=== PATIENT | male | born 1960 | race Caucasian/White ===

== ENCOUNTER 2021-12-11 07:59 | Outpatient (CLI) | payer BC, OTHER, SELFPAY | END 2021-12-11 08:00 | disposition home or self-care (01) | LOC: AMB 12-19 19:36 | PROVIDERS: Visit Provider Family Medicine | DX: I95.9 Hypotension, unspecified (principal); R42 Dizziness and giddiness; R55 Syncope and collapse | CPT/HCPCS: A0425; A0427 ==

== ENCOUNTER 2021-12-11 08:20 | Emergency (ER) | payer BC, OTHER, SELFPAY ==
[2021-12-11] VITALS (17 sets, daily range): BP systolic 76–102; BP diastolic 44–69; PULSE 68–90; RESP 10–24; TEMP 35.6–36.4; O2SAT 97–100; BMI 30.7
--- NOTE | 2021-12-11 08:50 | ED_ITS ---
HPI - Syncope General Chief Complaint: Syncope/Fainted Stated Complaint: Chest Pain, syncope Time Seen by Provider: 12/11/21 08:31 History of Present Illness HPI narrative: 61-year-old man presenting to the emergency department with concern of syncopal event. Was up around 8:00 a.m. this morning about 30 minutes prior to presenting to the emergency department to urinate. Became increasingly lightheaded and returning to the bed missed the corner of the bed to sit on ending up on the floor waking up to his over him. She helped him up to the bed and is subsequently passed out again. Did not have headache. Did not reportedly hit his head. Is not complaining of any neck or back pain. Was notably exertionally fatigued or winded. With all of this also then had the need to have a bowel movement which patient's spouse reported smelled as if it had blood in it and was unusually dark. EMS was called and from EKG strips the looks to have been some ST depression about 1 mm in V2 V3 with elevation similar in lead 3 a little less in lead to maybe a little in AVF as well. This looks to be improved in the EKG about 7 minutes later though still mildly present. He was not having any chest pain at this time. He was quite diaphoretic around these times. Took 324 mg of aspirin. EKG presented to me upon patient's arrival looks like this has really normalized now. Recent history for Mr. Mckeon includes on the 19 of November having a Whipple procedure. It sounds as though this has gone well. He subsequently I believe on the 29 of November had cardiac stent placement. Had been experiencing chest and left shoulder pain prompting an angiogram. Over the last nearly 2 weeks things have been going reasonably well; has been feeling fairly good. Related Data Home Medications Medication Instructions Recorded Confirmed atorvastatin 80 mg tablet 80 mg PO QHS 12/11/21 12/11/21 clopidogrel 75 mg tablet (Plavix) 75 mg PO DAILY 12/11/21 12/11/21 fluconazole 200 mg tablet 200 mg PO Q12H 12/11/21 12/11/21 (Diflucan) lisinopril 2.5 mg tablet 2.5 mg PO DAILY 12/11/21 12/11/21 metoprolol tartrate 25 mg tablet 12.5 mg PO BID 12/11/21 12/11/21 pantoprazole 40 mg granules 40 mg PO DAILY 12/11/21 12/11/21 delayed-release for susp in packet (Protonix) Allergies Allergy/AdvReac Type Severity Reaction Status Date / Time No Known Drug Allergies Allergy Verified 12/11/21 11:52 Review of Systems Status of ROS: Reports: 10 or more systems reviewed and unremarkable except as noted in History and below PFSH PFSH Social History Smoking Status: Never smoker Do you use any of these nicotine containing products: None Second hand tobacco smoke exposure: No How often do you have a drink containing alcohol: never AUDIT-C Alcohol total score: 0 Non-prescribed substance use: denies use Exam Narrative: Exam Narrative: Pleasant. Calm. NAD. Breathing easily. Cranial nerves 2-12 intact. Cognating normally. Skin is warm and dry not diaphoretic. There is no JVD, no HJR Head looks to be atraumatic. Neck is supple nontender. Back nontender. Lungs are clear equal expansion excursion. Extremities are without edema. Moving all extremities without difficulty. Abdomen is soft protuberant. Nontender. Well-healing scars of recent surgery. No excessive erythema present. Cardiovascular with regular rate and rhythm. Little distant but no murmur rub or gallop appreciated. Const: Vital Signs, click to edit/add: Vital Signs - 24 hr 12/11/21 08:35 12/11/21 08:26 12/11/21 08:30 Temperature 96.1 F L 96.1 F L Pulse Rate [Right Pulse Oximeter] 75 78 75 Respiratory Rate 16 16 20 Blood Pressure [Ri ght Upper Arm] 83/55 L 83/55 L 84/44 L Pulse Oximetry 98 99 99 Oxygen Delivery Me thod Room Air Room Air Room Air 12/11/21 08:45 12/11/21 09:15 12/11/21 09:20 Temperature Pulse Rate [Right Pulse Oximeter] 77 72 71 Respiratory Rate 24 18 10 L Blood Pressure [Ri ght Upper Arm] 93/60 87/57 L 83/49 L Pulse Oximetry 100 98 100 Oxygen Delivery Me thod Room Air Room Air Room Air 12/11/21 09:25 12/11/21 09:25 12/11/21 09:30 Temperature Pulse Rate [Right Pulse Oximeter] 84 90 69 Respiratory Rate 15 15 23 Blood Pressure [Ri ght Upper Arm] 76/50 L 93/58 L 93/56 L Pulse Oximetry 100 100 100 Oxygen Delivery Me thod Room Air Room Air Room Air 12/11/21 09:45 12/11/21 10:00 12/11/21 10:15 Temperature Pulse Rate [Right Pulse Oximeter] 73 68 79 Respiratory Rate 16 21 12 Blood Pressure [Ri ght Upper Arm] 93/63 102/63 99/69 Pulse Oximetry 100 100 97 Oxygen Delivery Me thod Room Air Room Air Room Air 12/11/21 10:30 12/11/21 10:45 12/11/21 11:00 Temperature Pulse Rate [Right Pulse Oximeter] 72 70 70 Respiratory Rate 17 21 18 Blood Pressure [Ri ght Upper Arm] 97/66 97/63 95/63 Pulse Oximetry 100 100 98 Oxygen Delivery Me thod Room Air Room Air Room Air 12/11/21 12:00 12/11/21 13:31 12/11/21 14:30 Temperature 97.6 F Pulse Rate [Right Pulse Oximeter] 72 68 76 Respiratory Rate 13 20 19 Blood Pressure [Ri ght Upper Arm] 94/55 L 94/60 96/60 Pulse Oximetry 100 100 99 Oxygen Delivery Me thod Room Air Room Air Documenting provider has reviewed patient's vital signs: yes Course Course Hospital Course: Is being initiated on fluid resuscitation given low blood pressures on arrival. Labs are pending. Stool guaiac as well. Stool guaiac positive. Hemoglobin is 8.3 it is about 1 gm lower than last checked. Have repeated EKGs which look to have normalized. Troponins while elevated are flat. Spouse provides documentation showing a troponin of 1500 approximately 6 days ago. Surgeon care team has been in the loop as well as Cardiology at [facility]. In spite of abdominal pain are concerned about evolving process intra-abdominally. CT scan of abdomen pelvis was done. I did review these images. Good amount of inflammation/edema present in the area of surgery as expected. Over-read by radiology as below --did discuss personally with them. 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 There are scattered foci of questionable enhancement versus hyperdense suture material just at the pancreatico duodenostomy with additional somewhat layering radiopaque material within the bypassed duodenum and jejunum which could represent a minimal amount of organizing clot. Recommend additional follow-up with repeat CT with arterial and delayed timing such is a pancreatic protocol CT for assessment of active bleeding at the level of the anastomosis. Findings are best seen on series 2 image 40 through 49. Additional note is made of somewhat prominent biliary system with questionable mild thickening and enhancement of the common bile duct wall which could represent a minimal amount of cholangitis change. Pending now is repeat abdominal imaging arterial phase. Also given elevated D- dimer which most likely is secondary to inflammation present, will be attempting to image chest as well for pulmonary embolus. No evidence of large intra- abdominal bleeding to explain persistent relative hypotension. Perhaps this is related to recent syncope, and as clarified with me actually an MD 2 weeks ago, with single-vessel stenting in the left obtuse marginal(?) and/or symptomatic pulmonary embolus as well. I received a call back from [facility]. Edema is concerned and would like to evaluate further at [facility]. Will be sent directly to the emergency department upon completion of imaging. Also communicated with Cardiology Dr. Shaffer directly. Final imaging reads as below-- Due to timing of contrast, CT imaging was not ultimately useful to exclude pulmonary embolus. IMPRESSION: 1. Changes of Whipple procedure, with active bleeding into the pancreaticojejunostomy. 2. Mild periportal edema could be reactive. 3. No other important changes from prior. I discussed these images with Radiology Troponins over time were flat. Likely still coming down from MD and recent procedure. Consultations Consultation #1: Have attempted given elevated troponins exploring placement in various locations including [facility]. No beds available. Did however receive a call back from [facility] after consulting Cardiology with EKGs. They feel that the EKGs are unchanged from prior recommending repeat EKG and labs. This is already pending. Vital Signs Vital signs: Initial Vital Signs Temperature 96.1 F L 12/11/21 08:26 Temperature Source Temporal Artery Scan 12/11/21 08:26 Pulse Rate 78 12/11/21 08:26 Pulse Rhythm 12/11/21 08:26 Pulse Strength 0+ Absent 12/11/21 08:26 Respiratory Rate 16 12/11/21 08:26 Respiratory Effort 12/11/21 08:26 Respiratory Depth Normal 12/11/21 08:26 Blood Pressure 83/55 L 12/11/21 08:26 Blood Pressure Mean 64 12/11/21 08:26 Blood Pressure Position Supine 10/28/22 08:26 Pulse Oximetry 99 12/11/21 08:26 Oxygen Delivery Method 12/11/21 08:26 Vital Signs Temperature 96.1 F L 12/11/21 08:26 Pulse Rate 78 12/11/21 08:26 Respiratory Rate 16 12/11/21 08:26 Blood Pressure 83/55 L 12/11/21 08:26 Pulse Oximetry 99 12/11/21 08:26 Oxygen Delivery Method 12/11/21 08:26 Temperature 97.6 F 12/11/21 14:30 Pulse Rate 76 12/11/21 14:30 Respiratory Rate 19 12/11/21 14:30 Blood Pressure 96/60 12/11/21 14:30 Pulse Oximetry 99 12/11/21 14:30 Oxygen Delivery Method 12/11/21 13:31 MDM - Syncope Medical Records Attestation: I reviewed the patient's medical records. Lab Data Attestation: I reviewed the patient's lab results. Labs: Lab Results 12/11/21 12/11/21 12/11/21 Range/Units 08:53 08:58 08:58 WBC 10.27 (4.50-11.00) K/uL RBC 2.86 L (4.30-5.90) m/uL Hgb 8.3 L (13.5-17.5) gm/dL Hct 25.8 L (37.0-53.0) % MCV 90 (80-100) fL MCH 29 (26-34) pg MCHC 32 (32-36) gm/dL RDW Coeff of Shon 14.0 (11.5-15.5) % Plt Count 478 H (140-440) K/uL Neut % (Auto) 77.0 H (42.0-72.0) % Lymph % (Auto) 14.4 L (20-44) % Cook % (Auto) 5.6 (0.0-11.0) % Eos % (Auto) 1.8 (0.0-7.0) % Baso % (Auto) 0.5 (0.0-3.0) % Neut # (Auto) 7.90 H (1.7-7.0) K/uL Lymph # (Auto) 1.50 (0.90-2.90) K/uL Cook # (Auto) 0.60 (0.00-0.90) K/UL Eos # (Auto) 0.18 (0.00-0.50) K/uL Baso # (Auto) 0.05 (0.00-0.30) K/uL Abs Immat Gran (auto) 0.07 (0.00-0.30) K/uL D-Dimer Quant (PE/DVT) 3.51 H (0.00-0.50) ug/ml Sodium (135-149) mmol/L Potassium (3.6-5.1) mmol/L Chloride (96-114) mmol/L Carbon Dioxide (20-32) mmol/L BUN (7-30) mg/dL Creatinine (0.5-1.5) mg/dL Estimated Creat Clear Estimated GFR ml/min Glucose (60-115) mg/dL Calcium (8.4-10.6) mg/dL Magnesium (1.5-2.6) mg/dL Total Bilirubin (0.1-1.5) mg/dL Direct Bilirubin (0.0-0.5) mg/dL AST (12-35) U/L ALT (4-50) U/L Alkaline Phosphatase (40-150) U/L Troponin I (0.01-0.04) ng/mL C-Reactive Protein (0.5-1.0) mg/dL NT-Pro-B Natriuret Pep (0-125) PG/mL Total Protein (6.0-8.3) g/dL Albumin (3.3-5.0) g/dL SARS-CoV-2 (PCR) Negative SARS-CoV-2 (Negative) POC Troponin I (0.01-0.04) ng/ml 12/11/21 12/11/21 12/11/21 Range/Units 08:58 08:58 08:58 WBC (4.50-11.00) K/uL RBC (4.30-5.90) m/uL Hgb (13.5-17.5) gm/dL Hct (37.0-53.0) % MCV (80-100) fL MCH (26-34) pg MCHC (32-36) gm/dL RDW Coeff of Shon (11.5-15.5) % Plt Count (140-440) K/uL Neut % (Auto) (42.0-72.0) % Lymph % (Auto) (20-44) % Cook % (Auto) (0.0-11.0) % Eos % (Auto) (0.0-7.0) % Baso % (Auto) (0.0-3.0) % Neut # (Auto) (1.7-7.0) K/uL Lymph # (Auto) (0.90-2.90) K/uL Cook # (Auto) (0.00-0.90) K/UL Eos # (Auto) (0.00-0.50) K/uL Baso # (Auto) (0.00-0.30) K/uL Abs Immat Gran (auto) (0.00-0.30) K/uL D-Dimer Quant (PE/DVT) (0.00-0.50) ug/ml Sodium 138 (135-149) mmol/L Potassium 4.8 (3.6-5.1) mmol/L Chloride 106 (96-114) mmol/L Carbon Dioxide 24 (20-32) mmol/L BUN 16 (7-30) mg/dL Creatinine 1.0 (0.5-1.5) mg/dL Estimated Creat Clear 82.62 Estimated GFR 86 ml/min Glucose 209 H (60-115) mg/dL Calcium 8.5 (8.4-10.6) mg/dL Magnesium 1.9 (1.5-2.6) mg/dL Total Bilirubin 0.2 (0.1-1.5) mg/dL Direct Bilirubin 0.1 (0.0-0.5) mg/dL AST 26 (12-35) U/L ALT 25 (4-50) U/L Alkaline Phosphatase 90 (40-150) U/L Troponin I 1.46 H* (0.01-0.04) ng/mL C-Reactive Protein 2.5 H (0.5-1.0) mg/dL NT-Pro-B Natriuret Pep 815 H (0-125) PG/mL Total Protein 5.9 L (6.0-8.3) g/dL Albumin 3.3 (3.3-5.0) g/dL SARS-CoV-2 (PCR) (Negative) POC Troponin I 0.90 H (0.01-0.04) ng/ml 12/11/21 12/11/21 Range/Units 10:43 14:08 WBC (4.50-11.00) K/uL RBC (4.30-5.90) m/uL Hgb (13.5-17.5) gm/dL Hct (37.0-53.0) % MCV (80-100) fL MCH (26-34) pg MCHC (32-36) gm/dL RDW Coeff of Shon (11.5-15.5) % Plt Count (140-440) K/uL Neut % (Auto) (42.0-72.0) % Lymph % (Auto) (20-44) % Cook % (Auto) (0.0-11.0) % Eos % (Auto) (0.0-7.0) % Baso % (Auto) (0.0-3.0) % Neut # (Auto) (1.7-7.0) K/uL Lymph # (Auto) (0.90-2.90) K/uL Cook # (Auto) (0.00-0.90) K/UL Eos # (Auto) (0.00-0.50) K/uL Baso # (Auto) (0.00-0.30) K/uL Abs Immat Gran (auto) (0.00-0.30) K/uL D-Dimer Quant (PE/DVT) (0.00-0.50) ug/ml Sodium (135-149) mmol/L Potassium (3.6-5.1) mmol/L Chloride (96-114) mmol/L Carbon Dioxide (20-32) mmol/L BUN (7-30) mg/dL Creatinine (0.5-1.5) mg/dL Estimated Creat Clear Estimated GFR ml/min Glucose (60-115) mg/dL Calcium (8.4-10.6) mg/dL Magnesium (1.5-2.6) mg/dL Total Bilirubin (0.1-1.5) mg/dL Direct Bilirubin (0.0-0.5) mg/dL AST (12-35) U/L ALT (4-50) U/L Alkaline Phosphatase (40-150) U/L Troponin I 1.50 H* 1.39 H* (0.01-0.04) ng/mL C-Reactive Protein (0.5-1.0) mg/dL NT-Pro-B Natriuret Pep (0-125) PG/mL Total Protein (6.0-8.3) g/dL Albumin (3.3-5.0) g/dL SARS-CoV-2 (PCR) (Negative) POC Troponin I (0.01-0.04) ng/ml ECG Data Attestation: I personally reviewed and interpreted this ECG as follows: (Looks to be in normal sinus at a rate of 71. QT of 492 milliseconds subtle elevation of the ST segment in lead 3 and very subtle depression in V4. ) Discharge Plan Discharge Clinical Impression: Syncope, Hypotension, GI bleed Patient Disposition: Xfer [facility] Discharge Location: [facility] Condition: Stable Prescriptions: No Action atorvastatin 80 mg tablet 80 mg PO QHS clopidogrel [Plavix] 75 mg tablet 75 mg PO DAILY fluconazole [Diflucan] 200 mg tablet 200 mg PO Q12H lisinopril 2.5 mg tablet 2.5 mg PO DAILY metoprolol tartrate 25 mg tablet 12.5 mg PO BID pantoprazole [Protonix] [address] for susp in packet 40 mg PO DAILY Stand Alone Forms: MyHealth Info Instructions
[2021-12-11] MEDS: 0.9 % SODIUM CHLORIDE 1000 ml 1,000 ML IV (08:58)
[2021-12-11 09:07] LABS: Basophils Absolute Auto 0.05 K/uL (0.00-0.30); Basophils Percent Auto 0.5 % (0.0-3.0); Eosinophils Absolute Auto 0.18 K/uL (0.00-0.50); Eosinophils Percent Auto 1.8 % (0.0-7.0); Hematocrit 25.8 % (37.0-53.0); Hemoglobin* 8.3 gm/dL (13.5-17.5); Immature Granulocytes Abs Auto 0.07 K/uL (0.00-0.30); Lymphocytes Percent Auto 14.4 % (20-44); Mean Corpuscular HGB Conc 32 gm/dL (32-36); Mean Corpuscular Hemoglobin 29 pg (26-34); Mean Corpuscular Volume 90 fL (80-100); Monocytes Percent Auto 5.6 % (0.0-11.0); Platelet Count* 478 K/uL (140-440); Red Blood Count 2.86 m/uL (4.30-5.90); White Blood Count* 10.27 K/uL (4.50-11.00)
[2021-12-11 09:27] LABS: Albumin* 3.3 g/dL (3.3-5.0); Chloride* 106 mmol/L (96-114)
[2021-12-11 09:28] LABS: Potassium* 4.8 mmol/L (3.6-5.1); Slide Review Reflex No; Sodium* 138 mmol/L (135-149)
--- NOTE | 2021-12-11 09:29 | ED.NURSE ---
Attempted to do orthostatic BP lying 87/57-73 sitting 83/49-76 standing 76/50-96--needed to sit on the edge of the bed due to sx of dizzy, sob stated on 12/06/21 Hbg was 9.3. patient is taking plavix and Asa baby 324mg today for sx adiviced.
[2021-12-11 09:30] LABS: Est. Creatinine Clearance* 82.62; Estimated Glomerular Filt Rate 86 ml/min
[2021-12-11 09:31] LABS: Alanine Aminotransferase* 25 U/L (4-50); Alkaline Phosphatase* 90 U/L (40-150); Aspartate Amino Transferase* 26 U/L (12-35); Bilirubin Direct* 0.1 mg/dL (0.0-0.5); Bilirubin Total* 0.2 mg/dL (0.1-1.5); Blood Urea Nitrogen* 16 mg/dL (7-30); Calcium* 8.5 mg/dL (8.4-10.6); Carbon Dioxide* 24 mmol/L (20-32); Glucose* 209 mg/dL (60-115); Total Protein* 5.9 g/dL (6.0-8.3)
[2021-12-11 09:32] LABS: Magnesium* 1.9 mg/dL (1.5-2.6)
[2021-12-11 09:34] LABS: C Reactive Protein* 2.5 mg/dL (0.5-1.0)
[2021-12-11 09:39] LABS: NT Pro B Type NatriureticPept* 815 PG/mL (0-125)
[2021-12-11 09:41] LABS: D Dimer Quantitative* 3.51 ug/ml (0.00-0.50)
[2021-12-11 09:43] LABS: Troponin I* 1.46 ng/mL (0.01-0.04)
--- NOTE | 2021-12-11 09:44 | ED.NURSE ---
lab called with a critical lab 1.[address] Carcamo
--- NOTE | 2021-12-11 09:45 | ED.NURSE ---
stool is positive for blood per MD
[2021-12-11] MEDS: 0.9 % SODIUM CHLORIDE 250 ml 250 ML IV (10:05)
[2021-12-11 10:06] LABS: SARS PCR* Negative SARS-CoV-2 (Negative)
--- NOTE | 2021-12-11 13:30 | ED.NURSE ---
abdominal drain emptied by spouse.
--- NOTE | 2021-12-11 13:51 | CRLHL7_ITS ---
For Patients: As a result of the 21st Century Cures Act, medical imaging exams and procedure reports are released immediately into your electronic medical record. You may view this report before your referring provider. If you have questions, please contact your health care provider. INDICATION: Follow-up possible bleed seen on previous CT done today by Whipple surgery. TECHNIQUE: CT abdomen without and with 60 mL Isovue 370 IV contrast. Post-contrast phases were performed during arterial, portal venous, and 90 second delay. Coronal and sagittal reformats were generated. COMPARISON: CT of the abdomen pelvis from 12/11/2021 and 11/25/2021. FINDINGS: Lower chest: Unremarkable. Liver: Mild periportal edema. Gallbladder and bile ducts: Surgically absent. Spleen: Unremarkable. Pancreas: Resection of the pancreatic head as part of a Whipple procedure. High-density structures in the region of the pancreaticojejunostomy are compatible with clips. An area of linear high attenuation on the arterial phase tracks into the jejunum (12/42). This increases in amount and tracks dependently within the bowel lumen on the delayed phase (7/42). The jejunum beyond the pancreaticojejunostomy is dilated and contains high-density material, compatible with active bleeding. The source is not apparent, but appears to come from a branch of the superior pancreaticoduodenal artery. The remaining pancreatic body and tail are normal in caliber. No ductal dilation. Adrenal glands: Unremarkable. No nodules. Kidneys and Ureters: Unremarkable. No suspicious masses, stones, or hydronephrosis. Lymph Nodes and Retroperitoneum: Unremarkable. Vasculature: Conventional hepatic arterial anatomy. GI tract: Changes antrectomy and gastrojejunostomy is part of a Whipple procedure. Bowel loops are normal in caliber. Peritoneum/Abdominal Wall: Percutaneous drain has its tip in the upper right abdomen. Bones: Unremarkable for age. IMPRESSION: 1. Changes of Whipple procedure, with active bleeding into the pancreaticojejunostomy. 2. Mild periportal edema could be reactive. 3. No other important changes from prior. Findings were discussed with Dr. Carcamo on 12/11/2021 at 3:51 p.m. Please note that all CT scans at this facility use dose modulation, iterative reconstruction, and/or weight-based dosing when appropriate to reduce radiation dose to as low as reasonably achievable. Dictated by Luan Mcmahon MD @ 12/11/2021 4:34:29 PM (Electronically Signed)
--- NOTE | 2021-12-11 13:52 | CRLHL7_ITS ---
For Patients: As a result of the 21st Century Cures Act, medical imaging exams and procedure reports are released immediately into your electronic medical record. You may view this report before your referring provider. If you have questions, please contact your health care provider. INDICATION: Elevated D-dimer. Low hemoglobin. Surgery 11/19 Whipple. TECHNIQUE: CT chest was acquired with 60 mL Isovue 370 IV contrast. Coronal and sagittal reformats were generated. COMPARISON: None. FINDINGS: Thyroid: Unremarkable. Thoracic lymph nodes: No enlarged supraclavicular, mediastinal, hilar, or axillary lymph nodes. Mediastinum and esophagus: Unremarkable. Heart and vasculature: The heart size is normal. Poor opacification of the vascular structures. Lungs: Bibasilar atelectasis. Pleura: Unremarkable. Chest wall: Unremarkable. Upper abdomen: Surgical changes in the abdomen. Bones: Mild degenerative changes. No aggressive appearing lytic or blastic lesions. IMPRESSION: 1. No CT abnormality in the chest within limitations of poor opacification of the vasculature, due to scanning after the CT of the abdomen and pelvis. If there is clinical concern for a pulmonary embolus, recommend CT PE protocol. 2. Please see the same day CT of the abdomen and pelvis for further details about abdominal findings. Please note that all CT scans at this facility use dose modulation, iterative reconstruction, and/or weight-based dosing when appropriate to reduce radiation dose to as low as reasonably achievable. Dictated by Luan Mcmahon MD @ 12/11/2021 3:36:24 PM (Electronically Signed)
[2021-12-11] MEDS: PANTOPRAZOLE SODIUM 40 MG INJ 80 MG IVP (14:37)
[2021-12-11 15:00] LABS: Troponin I* 1.39 ng/mL (0.01-0.04)
--- NOTE | 2021-12-11 15:25 | ED.NURSE ---
Patient transfered to [facility] Emergency department.
== END 2021-12-11 15:27 | disposition home or self-care (01) ==
PROVIDERS: Emergency Provider Family Medicine
DX: R55 Syncope and collapse (principal); K92.2 Gastrointestinal hemorrhage, unspecified; I95.9 Hypotension, unspecified
CPT/HCPCS: 36415; 71260; 74170; 74177; 80048; 80076; 83735; 83880; 84484; 85025; 85379; 86140; 87635; 93005; 96374; 99285; C9113; J7030; J7050; Q9967

== ENCOUNTER 2021-12-11 15:14 | Outpatient (CLI) | payer BC, OTHER, SELFPAY | END 2021-12-11 15:15 | disposition home or self-care (01) | LOC: AMB 01-18 03:33 | PROVIDERS: Visit Provider Family Medicine | DX: I21.4 Non-ST elevation (NSTEMI) myocardial infarction (principal) | CPT/HCPCS: A0425; A0426 ==